=== PATIENT | male | born 1970 | race Two or more races ===

== ENCOUNTER → 2016-09-29 | Outpatient (CLI) | payer BC ==
--- NOTE | 2016-09-29 23:01 | HKNOTE ---
DATE OF SERVICE: 09/29/2016 ADDENDUM PAST MEDICAL HISTORY: Pulmonary embolism in 2010. He was admitted to [facility]. It was never clear why he got pulmonary embolism, possibly from driving around too much in his job. MEDICATIONS: 1. Coumadin 7 mg daily. 2. Pantoprazole 40 mg daily. 3. Tramadol 100 mg daily. 4. Tylenol 500 mg 3 times a day. ALLERGIES: PENICILLIN. PHYSICAL EXAMINATION: The patient comes in with his . VITAL SIGNS: Height 5 feet 11 inches. Weight 252 pounds. Blood pressure 130/70. Temperature 98.4. EXTREMITIES: On examination of the right knee, extension is full but painful, 2-plus effusion, marked tenderness along the medial joint line. IMAGING: Plane x-rays of the right knee obtained today at [facility] and showed minimal narrowing of the joint space, small osteophytes. DIAGNOSIS: 1. Probable torn medial meniscus of the right knee. 2. History of pulmonary embolism. MANAGEMENT: The patient is advised that if he almost certainly has a torn meniscus of the right knee for which he is being referred for an MRI scan of the right knee and he will be scheduled for an arthroscopic operation on the right knee in the very near future. The procedure was discussed with him and his in a fair amount of detail including some of the major possible complications. My community relations assistant will call Mr. Ching and offer him the first opportunity to have his knee surgery. Dictated By: Obinna Khanna MD /bernice/eliana /Document#: [id number]
--- NOTE | 2016-09-30 08:21 | RADRPT ---
PROCEDURE: XR Knees. CLINICAL INDICATION: Pain TECHNIQUE: AP, lateral, and sunrise views of the bilateral knees are available for review. COMPARISON: None available FINDINGS: The osseous structures, articular spaces, and surrounding soft tissues of the bilateral knees are al l unremarkable. No acute fracture or dislocation is seen. No radiopaque foreign body is identified . Alignment is anatomic. IMPRESSION: 1. Unremarkable bilateral knee x-ray series. 2. No acute fracture or dislocation is seen. RPTAT: QQ .Mark Mccall MD, MD Date Time Electronically viewed and signed by .Mark Mccall MD, MD on 09/30/2016 08:21 .R/
--- NOTE | 2016-09-30 11:54 | HKNOTE ---
DATE OF SERVICE: 09/29/2016 MAIN COMPLAINT: Pain in the right knee. HISTORY OF MAIN COMPLAINT: The patient is a 45-year-old male who complains of pain and swelling in the right knee. The pain started spontaneously about 3 weeks ago. He was getting out of his car when he had a sudden onset of pain in the knee "as if somebody had stuck a knife in my knee." He could barely walk, but he made it into the house. The next day, the knee became swollen. Since then, he has had continuing pain and swelling of the leg and the right knee. The patient complains the right knee swells, it feels unstable but it does not lock. Pain is aggravated by walking. He takes Tylenol and/or tramadol for the pain. He has a long history of problems with his lower back. He has a long history of low back pain. Without a cane he could still walk long distances, as he does normally do. PAST ORTHOPEDIC HISTORY: None. PRIOR CORTISONE INTAKE: None. ALCOHOL INTAKE: None. OTHER JOINT PROBLEMS: Prior problems with his knees: None. Other joint problems: None. BLOOD TESTS FOR ARTHRITIS: None. 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 PHYSICAL EXAMINATION: A remarkably fit looking, 45-year-old male who comes in with his today. PAST MEDICAL HISTORY: DICTATION ENDS HERE Dictated By: Obinna Khanna MD /bernice/aury /Document#: [id number]
--- NOTE | 2016-09-30 11:54 | HKNOTE ---
DATE OF SERVICE: 09/29/2016 BLOOD TESTS FOR ARTHRITIS: None. treated for hips or knees. WORK STATUS: The patient is a assistant warehouse manager. The job involves a lot of physical activity. PAST MEDICAL HISTORY: 1. Pulmonary embolism in 2010. He was admitted to Hospital. DICTATION ENDS HERE Dictated By: Obinna Khanna MD /bernice/aury /Document#: [id number]
--- NOTE | 2016-09-30 11:56 | HKNOTE ---
DATE OF SERVICE: PAST MEDICAL HISTORY: Pulmonary embolism 2010. It is believed that this was from sitting in a car for too long while traveling around the country. ENDS HERE Dictated By: Obinna Khanna MD /bernice/paresh /Document#: [id number]
== END | disposition home or self-care (01) ==
LOC: HKI 15:18
DX: M25.561 Pain in right knee (principal); R22.41 Localized swelling, mass and lump, right lower limb; Z86.711 Personal history of pulmonary embolism; Z79.01 Long term (current) use of anticoagulants; Z88.0 Allergy status to penicillin
CPT/HCPCS: 73562; G0463